=== PATIENT | female | born 1985 | race Caucasian/White ===

== ENCOUNTER 2021-08-08 10:47 | Emergency (ER) | payer BC ==
--- OUTSIDE RECORDS SUMMARY | 2021-08-08 10:50 | XMS REPORT | Continuity of Care Document ---
:1985 Author Organization [facility] t Address [address] [place] [address] Care Team Providers Name Role Phone [email or web address] Attending Clinician Unavailable [email or web address]_C Admitting Clinician Unavailable Payers Payer Name Policy Type Policy Number Effective Date Expiration Date S danial [place]: [id number] 2017 00:00:00 TAINA CONOR TORO ([place]) [place] [id number] 2021 00:00:00 Problems This patient has no known problems. Allergies, Adverse Reactions, Alerts Allergy Allergy Status Severity Reaction(s) Onset Inactive Treating Comm ents Source Name Type Date Date Clinician latex DA Active [place] [facility] 09-06 [facility] [place] Medications This patient has no known medications. Procedures This patient has no known procedures. Encounters Start End Encounter Admission Attending Care Care Encounter Source Date/Time Date/Time Type Type Clinicians Facility Department ID 2021-04-10 2021-04-10 Outpatient GC_SWHAOMC_ PRIV PRIV [id number] [facility] 10:58:00 10:58:00 [facility] [id number] [facility] 2021-04-10 2021-04-10 Outpatient GC_[facility]_ PRIV PRIV [id number] [facility]:58[id number] Results Test Description Test Time Test Comments Results Result Comments Source HGB HCT 2018-09-26 09:48:00 Test Item Value Reference Range Interpretation Comme nts HEMOGLOBIN (test code = HGB) 12.6 g/dL 10.7-13.9 N HEMATOCRIT (test code = HCT) 36.3 % 32.1-42.1 N PATIENT IS NOT IN THE ROOM WILL CHECK BACK LATER(PHELE...MS)[id number] 18:19:00 Test Item Value Reference Range Interpretation Comments CREATININE (test code = CREAT) 0.6 mg/dL 0.5-1.0 N Comments to [employer]: PLS USE SPECIMEN THAT WAS SENT EARLIERComments to [employer] [facility] [employer] [facility]: PLEASE USE SPECIMEN THAT WAS SENTSGOT/AST 2018-09-23 18:19:00 Test Item Value Reference Range Interpretation Comments SGOT/AST (test code = AST) 20 units/L 15-37 N Comments to [employer] [facility]: PLS USE SPECIMEN THAT WAS SENT EARLIERComments to [employer] [facility] [facility]: PLEASE USE SPECIMEN THAT WAS SENTSGPT/ALT 2018-09-23 18:19:00 Test Item Value Reference Range Interpretation Comments SGPT/ALT (test code = ALT) 24 units/L 12-78 N Comments to [employer] [facility]: PLS USE SPECIMEN THAT WAS SENT EARLIERComments to [employer] [facility] [facility]: PLEASE USE SPECIMEN THAT WAS SENTAG HEPATITIS B [id number] 13:00:00 Test Item Value Reference Range Interpretation Comments AG HEPATITIS B SURFACE (test code NONREACTIVE NONREACTIVE = HBSAG) AB HEPATITIS C [id number] 13:00:00 Test Item Value Reference Range Interpretation Comments AB HEPATITIS C (test code = NONREACTIVE NONREACTIVE HCVAB) SIGNAL TO CUTOFF (test code = 0.03 <0.80 N CUTOFF) AB [id number] 13:00:00 Test Item Value Reference Range Interpretation Comments AB TREPONEMA (test code = TREPAB) NONREACTIVE NONREACTIVE CBC W/AUTO [id number] 11:53:00 Test Item Value Reference Range Interpretation Comments WHITE BLOOD CELL (test code = WBC) 12.3 K/mm3 6.6-12.1 H RED BLOOD CELL (test code = RBC) 4.38 M/mm3 3.45-5.01 N HEMOGLOBIN (test code = HGB) 13.6 g/dL 10.7-13.9 N HEMATOCRIT (test code = HCT) 39.6 % 32.1-42.1 N MEAN CELL VOLUME (test code = MCV) 90 fL 84.1-94.8 N MEAN CELL HGB (test code = MCH) 31.1 pg 27-35 N MEAN CELL HGB CONCETRATION (test 34.3 gm/dL 32.2-34.1 H code = MCHC) RED CELL DISTRIBUTION WIDTH (test 12.0 % 12.4-16.5 L code = RDW) PLATELET COUNT (test code = PLT) 281 K/mm3 133-385 N IMMATURE PLATELET FRACTION (test 0.0 % 0.0-10.8 N code = IPF) MEAN PLATELET VOLUME (test code = 10.8 fl 9.1-12.7 N MPV) NEUTROPHIL % (test code = NT%) 72.5 % 56.5-79.4 N LYMPHOCYTE % (test code = LY%) 19.9 % 14.3-34.3 N MONOCYTE % (test code = MO%) 6.1 % 5.1-10.4 N EOSINOPHIL % (test code = EO%) 0.4 % 0.1-3.0 N BASOPHIL % (test code = BA%) 0.5 % 0.1-1.0 N NEUTROPHIL # (test code = NT#) 9.0 K/mm3 LYMPHOCYTE # (test code = LY#) 2.5 K/mm3 MONOCYTE # (test code = MO#) 0.8 K/mm3 EOSINOPHIL # (test code = EO#) 0.05 K/mm3 BASOPHIL # (test code = BA#) 0.1 K/mm3 RBC MORPHOLOGY REQUIRED (test code NORMAL NORMAL = RBCM) PLATELET MORPHOLOGY REQUIRED (test NORMAL NORMAL code = PLTMR)
[2021-08-08 11:36] LABS: Urine Blood Negative (Negative); Urine Glucose Negative (Negative); Urine Protein Negative (Negative); Urine Specific Gravity 1.025 (1.005-1.030)
[2021-08-08] MEDS ORDERED: HYDROCODONE/APAP 10/325 TAB ONE (11:42)
[2021-08-08] MEDS ORDERED: IBUPROFEN 400 MG TAB ONE (11:43)
[2021-08-08 12:07] LABS: Urine Specific Gravity/Preg 1.025 (1.005-1.030)
--- NOTE | 2021-08-08 12:07 | EDPHYS ---
Physician Documentation [facility] Name: Trixie Bui Age: 36 yrs Sex: Female : 1985 Arrival Date: 08/08/2021 Time: 10:51 Bed 18 Private MD: ED Physician Lew Crawford HPI: 08/08 11:24 This 36 yrs old Female presents to ER via Wheelchair with complaints of Foot hetal Injury, Toe Injury. 11:24 The patient presents with decreased range of motion, an injury, pain, that is acute. hetal The complaints affect the right foot. Context: The problem was sustained at home. Onset: The symptoms/episode began/occurred just prior to arrival. Modifying factors: The symptoms are alleviated by elevation of extremity, ice packs, sitting, the symptoms are aggravated by weight bearing, movement, wearing shoes. Associated signs and symptoms: The patient has no apparent associated signs or symptoms. Severity of symptoms: At their worst the symptoms were mild, moderate, in the emergency department the symptoms are unchanged. The patient has not experienced similar symptoms in the past. 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 - Social history:: Smoking status: Patient denies any tobacco usage or history of. - Family history:: not pertinent. ROS: 11:24 Constitutional: Negative for fever, chills, and weight loss, Eyes: Negative for injury, hetal pain, redness, and discharge, ENT: Negative for injury, pain, and discharge, Neck: Negative for injury, pain, and swelling, Cardiovascular: Negative for chest pain, palpitations, and edema, Respiratory: Negative for shortness of breath, cough, wheezing, and pleuritic chest pain, Abdomen/GI: Negative for abdominal pain, nausea, vomiting, diarrhea, and constipation, Back: Negative for injury and pain, : Negative for injury, bleeding, discharge, and swelling, Skin: Negative for injury, rash, and discoloration, Neuro: Negative for headache, weakness, numbness, tingling, and seizure, Psych: Negative for depression, anxiety, suicide ideation, homicidal ideation, and hallucinations, Allergy/Immunology: Negative for hives, rash, and allergies, Endocrine: Negative for neck swelling, polydipsia, polyuria, polyphagia, and marked weight changes, Hematologic/Lymphatic: Negative for swollen nodes, abnormal bleeding, and unusual bruising. 11:24 MS/extremity: Positive for decreased range of motion, pain, swelling, tenderness, of the left first toe. Exam: 11:24 Constitutional: This is a well developed, well nourished patient who is awake, alert, hetal and in no acute distress. Head/Face: Normocephalic, atraumatic. Eyes: Pupils equal round and reactive to light, extra-ocular motions intact. Lids and lashes normal. Conjunctiva and sclera are non-icteric and not injected. Cornea within normal limits. Periorbital areas with no swelling, redness, or edema. ENT: Nares patent. No nasal discharge, no septal abnormalities noted. Tympanic membranes are normal and external auditory canals are clear. Oropharynx with no redness, swelling, or masses, exudates, or evidence of obstruction, uvula midline. Mucous membranes moist. Neck: Trachea midline, no thyromegaly or masses palpated, and no cervical lymphadenopathy. Supple, full range of motion without nuchal rigidity, or vertebral point tenderness. No Meningismus. Chest/axilla: Normal chest wall appearance and motion. Nontender with no deformity. No lesions are appreciated. Cardiovascular: Regular rate and rhythm with a normal S1 and S2. No gallops, murmurs, or rubs. Normal PMI, no JVD. No pulse deficits. Respiratory: Lungs have equal breath sounds bilaterally, clear to auscultation and percussion. No rales, rhonchi or wheezes noted. No increased work of breathing, no retractions or nasal flaring. Abdomen/GI: Soft, non-tender, with normal bowel sounds. No distension or tympany. No guarding or rebound. No evidence of tenderness throughout. Back: No spinal tenderness. No costovertebral tenderness. Full range of motion. Skin: Warm, dry with normal turgor. Normal color with no rashes, no lesions, and no evidence of cellulitis. Neuro: Awake and alert, GCS 15, oriented to person, place, time, and situation. Cranial nerves II-XII grossly intact. Motor strength 5/5 in all extremities. Sensory grossly intact. Cerebellar exam normal. Normal gait. 11:24 Musculoskeletal/extremity: ROM: limited active range of motion, limited passive range of motion, Circulation is intact in all extremities. Sensation intact. Compartment Syndrome exam of affected extremity: is normal. Joints: All joints are normal except limited range of motion, pain at rest, painful range of motion, tenderness, DVT Exam: negative Homans' sign noted on exam, no appreciated bluish discoloration, no erythema, no increased warmth, pain, swelling, tenderness. Vital Signs: 10:54 BP 127 / 85; Pulse 75; Resp 16; Temp 98.6(TE); Pulse Ox 98% on R/A; Weight 104.33 kg; vg1 Height 5 ft. 7 in. (170.18 cm); Pain 7/10; 10:54 Body Mass Index 36.02 (104.33 kg, 170.18 cm) vg1 MDM: 10:51 Patient medically screened. [facility] 11:30 Differential diagnosis: fracture, sprain. Data reviewed: vital signs, nurses notes, [facility] radiologic studies, plain films. Data interpreted: safety risk lead: rate is 75 beats/min, rhythm is regular, Pulse oximetry: on room air is 98 %. Test interpretation: by ED physician or midlevel provider: plain radiologic studies. Counseling: I had a detailed discussion with the patient and/or guardian regarding: the historical points, exam findings, and any diagnostic results supporting the discharge/admit diagnosis, lab results, radiology results, the need for outpatient follow up, for definitive care, a orthopedic surgeon. 08/08 11:36 Order name: Urine Dipstick-Ancillary; Complete Time: 12:29 [facility] 08/08 11:51 Order name: Urine --Ancillary (enter results); Complete Time: 12:29 08/08 11:24 Order name: Urine Dipstick-Ancillary (obtain specimen); Complete Time: 11:51 [facility] 08/08 11:24 Order name: Foot Right 3 View XRAY; Complete Time: 12:29 [facility] 08/08 11:24 Order name: Urine Test (obtain specimen); Complete Time: 11:51 [facility] 08/08 11:24 Order name: Post-op shoe; Complete Time: 12:38 [facility] 08/08 11:24 Order name: Ice pack; Complete Time: 12:11 [facility] 08/08 12:30 Order name: Misc. Order: jesse tape 1st \T\ 2nd [facility] Administered Medications: 11:30 Drug: Motrin (ibuprofen) 800 mg Route: PO; [facility] 12:11 Follow up: Response: No adverse reaction [facility] 11:30 Drug: [place] (HYDROcodone-acetaminophen) 10 mg-325 mg 1 tabs Route: PO; [facility] 12:11 Follow up: Response: No adverse reaction [facility] Disposition Summary: 08/08/21 12:07 Discharge Ordered Location: Home [facility] Problem: new hetal Symptoms: have improved hetal Condition: Stable hetal Diagnosis - Displaced fracture of distal phalanx of unspecified great toe, initial encounter [facility] for open fracture Followup: hetal - With: Private Physician - When: 2 - 3 days - Reason: Recheck today's complaints, Re-evaluation by your physician Followup: hetal - With: - When: 2 - 3 days - Reason: Recheck today's complaints, Re-evaluation by your physician Discharge Instructions: - Discharge Summary Sheet hetal - Toe Fracture hetal - Toe Fracture, [id number] [facility] Forms: - Medication Reconciliation Form hetal - Thank You Letter hetal - Antibiotic Education hetal - Prescription Opioid Use [facility] Prescriptions: - Ibuprofen 600 mg Oral Tablet - take 1 tablet by ORAL route every 6 hours As needed take with food; 30 tablet; hetal Refills: 0, Product Selection Permitted - Tylenol-Codeine #3 300 mg-30 mg Oral - take 2 tablet by ORAL route every 6 hours; 20 tablet; Refills: 0, Product [facility] Selection Permitted Signatures: Dispatcher [employer] Lew Emery MD MD cha Garcia, Victoria, RN RN vg1 Jemima Veliz RN RN [facility]cl[facility]
--- NOTE | 2021-08-08 12:07 | ER ---
Nurse's Notes [facility] Name: Trixie Bui Age: 36 yrs Sex: Female : 1985 Arrival Date: 08/08/2021 Time: 10:51 Bed 18 Private MD: Diagnosis: Displaced fracture of distal phalanx of unspecified great toe, initial encounter for open fracture Presentation: 08/08 10:54 Chief complaint: Patient states: Jammed Right big toe while moving sofa and then landed vg1 on toe; states felt a radiating pain up Right leg and heard a pop. Coronavirus screen: Vaccine status: Patient reports being unvaccinated. Client denies travel out of the [place] in the last 14 days. Ebola Screen: Patient denies exposure to infectious person. Patient denies travel to an Ebola-affected area in the 21 days before illness onset. Initial Sepsis Screen: Does the patient meet any 2 criteria? No. Patient's initial sepsis screen is negative. Does the patient have a suspected source of infection? No. Patient's initial sepsis screen is negative. Risk Assessment: Do you want to hurt yourself or someone else? Patient reports no desire to harm self or others. Onset of symptoms was August 08, 2021. 10:54 Method Of Arrival: Wheelchair vg1 10:54 Acuity: JAX 4 vg1 Triage Assessment: 10:57 General: Appears uncomfortable, Behavior is calm, cooperative. Pain: Complains of pain vg1 in right foot and right leg. Musculoskeletal: Swelling present in right first toe and Right first toenail Reports pain in right first toe and Right first toenail. 11:20 Injury Description: Crush injury sustained to dorsum of right foot. 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 - Social history:: Smoking status: Patient denies any tobacco usage or history of. - Family history:: not pertinent. Screenin:19 Abuse screen: Denies threats or abuse. Denies injuries from another. Nutritional [facility] screening: No deficits noted. Tuberculosis screening: No symptoms or risk factors identified. Fall Risk None identified. Assessment: 11:19 General: Appears in no apparent distress. Behavior is calm, cooperative. Pain: barclay Complains of pain in dorsum of right foot Pain radiates to right leg. Musculoskeletal: Reports pain in dorsum of right foot Pain is 8 out of 10 on a pain scale. Vital Signs: 10:54 BP 127 / 85; Pulse 75; Resp 16; Temp 98.6(TE); Pulse Ox 98% on R/A; Weight 104.33 kg; vg1 Height 5 ft. 7 in. (170.18 cm); Pain 7/10; 10:54 Body Mass Index 36.02 (104.33 kg, 170.18 cm) vg1 ED Course: 10:51 Patient arrived in ED. [id number] 10:51 Lew Crawford MD is Attending Physician. [facility] 10:57 Triage completed. 1 10:57 Arm band placed on. 1 11:05 Jemima Veliz, JANKA is Primary Nurse. [facility] 11:19 Patient has correct armband on for positive identification. Bed in low position. [facility] 11:19 No provider procedures requiring assistance completed. [facility] 12:06 Tay Duffy MD is Referral Physician. [facility] 12:12 Foot Right 3 View XRAY In Process Unspecified. EDMI 12:38 Patient did not have IV access during this emergency room visit. [facility] Administered Medications: 11:30 Drug: Motrin (ibuprofen) 800 mg Route: PO; [facility] 12:11 Follow up: Response: No adverse reaction [facility] 11:30 Drug: [place] (HYDROcodone-acetaminophen) 10 mg-325 mg 1 tabs Route: PO; [facility] 12:11 Follow up: Response: No adverse reaction [facility] Medication: 11:19 VIS not applicable for this client. [facility]clay Outcome: 12:07 Discharge ordered by . [facility] 12:38 Discharged to home ambulatory. [facility] 12:38 Condition: good 12:38 Discharge instructions given to patient, Prescriptions given X 2. 12:39 Patient left the ED. [facility] Signatures: Dispatcher [employer] EDMI Lew Crawford MD MD cha Garcia, Victoria, RN RN vg1 Monse Mendoza [email or web address] Jemima Veliz RN RN Corrections: (The following items were deleted from the chart) 11:01 10:54 Pulse 75bpm; Resp 16bpm; Pulse Ox 98% RA; Temp 98.6F Temporal; 104.33 kg; Height vg1 5 ft. 7 in.; BMI: 36.0; Pain 7/10; vg1
--- NOTE | 2021-08-08 12:27 | RAD REPORT ---
EXAM DESCRIPTION: RAD - Foot Right 3 View - 08/08/2021 12:10 pm CLINICAL HISTORY: PAINnot otherwise specified COMPARISON: No comparisons FINDINGS: No gross fracture deformity is seen. There is cortical irregularity at the base of the dis norah phalanx first toe. Finding is suspicious for fracture but would need correlation with any localiz ing pain to the distal first toe. A trauma history was not specified. Elsewhere no acute or suspicious bone process seen. There is no dislocation or periosteal reaction. No air or foreign body in the soft tissues. IMPRESSION: Suspected nondisplaced fracture involving the distal phalanx of the first toe. Correlati on is needed with any localized symptoms.
[2021-08-08 12:44] VITALS: BP 127/85; TEMP 98.6; O2SAT 98
== END 2021-08-08 12:39 | disposition home or self-care (01) ==
LOC: ER 10:47
DX: S92.421B Displaced fracture of distal phalanx of right great toe, initial encounter for open fracture (principal)
CPT/HCPCS: 81003; 81025; 99283